=== PATIENT | female | born 1965 | race Caucasian/White ===

== ENCOUNTER 2019-10-27 10:29 | Emergency (ER) | payer OTHER ==
[~2019-10-27] VITALS: Ht 177.8 cm; Wt 100.1 kg
[~2019-10-27 10:29] MED LIST: ALBU2.5V8 INH; CETI10CA PO; ESTR1TAB3 PO; FEXOFENADINE; LEVO50TA5 PO; LISI10TA2 PO; MAGN400C PO
[2019-10-27] MEDS ORDERED: IV NORMAL SALINE 1,000ML 1,000 ML IV ONE (11:00)
[2019-10-27] MEDS ORDERED: ONDANSETRON PF 4 MG/2 ML VIAL. IVP ONE (11:00)
[2019-10-27] MEDS ORDERED: IOHEXOL 300 MG/ML 75 ML VIAL. IV ONE (11:00)
[2019-10-27] MEDS ORDERED: MORPHINE SULFATE 2 MG/ML DISP.SYRIN. IV ONE (11:00)
[2019-10-27 11:24] LABS: BASO % 1 % (0-3); EOS # 0.1 x10^3/uL (0.0-0.7); EOS % 2 % (0-3); HEMATOCRIT 39.2 % (36.0-47.0); HEMOGLOBIN 13.6 g/dL (12.0-15.5); LYMPH # 1.4 x10^3/uL (1.0-4.8); LYMPH % 28 % (24-48); MEAN CORPUSCULAR HEMOGLOBIN 30 pg (25-35); MEAN CORPUSCULAR HGB CONC 35 g/dL (31-37); MEAN CORPUSCULAR VOLUME 87 fL (79-100); MONO # 0.4 x10^3/uL (0.0-1.1); MONO % 7 % (0-9); NEUT # 3.2 x10^3uL (1.8-7.7); NEUT % 62 % (31-73); PLATELET COUNT 201 x10^3/uL (140-400); RED CELL DISTRIBUTION WIDTH 15.3 % (11.5-14.5); WHITE BLOOD COUNT 5.1 x10^3/uL (4.0-11.0)
[2019-10-27 11:38] LABS: CALCIUM 9.1 mg/dL (8.5-10.1); CREATININE 0.9 mg/dL (0.6-1.0); GFR 64.8; POTASSIUM 3.8 mmol/L (3.5-5.1)
[2019-10-27 11:40] LABS: ALBUMIN 3.9 g/dL (3.4-5.0); ALBUMIN/GLOBULIN RATIO 1.1 (1.0-1.7); TOTAL BILIRUBIN 0.7 mg/dL (0.2-1.0); TOTAL PROTEIN 7.4 g/dL (6.4-8.2)
[2019-10-27 12:10] VITALS: BP 123/78
--- NOTE | 2019-10-27 12:43 | RAD ---
INDICATION: Reason: LLQ pain - diabetic - pending labs / Spl. Instructions: / History: COMPARISON: July 2006 TECHNIQUE: Axial CT images obtained through the abdomen and pelvis with contrast. One or more of the following individualized dose reduction techniques were utilized for this examination: 1. Automated exposure control; 2. Adjustment of the mA and/or kV according to patient size; 3. Use of iterative reconstruction technique. FINDINGS: Postoperative changes to the stomach. Scattered calcific atherosclerosis. Abdominal aorta is not aneurysmal. No intrahepatic bile duct dilation. The liver is low density which can be seen with fatty infiltration. Postcholecystectomy changes. There is some fat-containing anterior abdominal wall hernias. There is some edema to the mesenteric fat with some scattered lymph nodes within. No peripancreatic fluid collection. No perisplenic hemorrhage. No hydronephrosis. Urinary bladder is decompressed. No hydronephrosis. Appendix is not well seen. No dilated loops of bowel to suggest obstruction. Degenerative changes the spine with multilevel central canal and neural foraminal stenosis. Degenerative changes of the hips. IMPRESSION: * No evidence of bowel obstruction. * There is some edema seen within the mesentery with scattered prominent lymph nodes. Nonspecific in nature with some possible causes including mesenteric panniculitis. Electronically signed by: Shaun Rodriguez MD (10/27/2019 12:40 PM) [id number]
[2019-10-27 12:57] LABS: BACTERIA,URINE MANY /HPF (0-FEW); BILIRUBIN,URINE NEG (NEG); CLARITY,URINE CLOUDY; COLOR,URINE YELLOW; GLUCOSE,URINE NEG (NEG); NITRITE,URINE POS (NEG); RBC,URINE RARE /HPF (0-2); SQUAMOUS EPITHELIAL CELL,UR MOD /LPF
--- NOTE | 2019-10-27 12:59 | PHYS DOC ---
Past History Past Medical History: Hypertension Past Surgical History: Appendectomy, Cholecystectomy, , Gastric Bypass, Hysterectomy Alcohol Use: Occasionally Drug Use: None General Adult EDM: Chief Complaint: ABDOMINAL PAIN HPI: HPI: 54-year-old female presents with left lower quadrant abdominal pain. The patient states the pain started yesterday. She was not doing anything when it started. It was initially a pinching sensation and now feels like a twisting pressure sensation. Patient has had multiple abdominal surgeries in the past. No known complications. She has had gastric sleeve. The pain is 7 out of 10. She denies vomiting or diarrhea. No fever or chills at home. She denies trauma or falls. Review of Systems: Review of Systems: Constitutional: Denies fever or chills Eyes: Denies change in visual acuity HENT: Denies nasal congestion or sore throat Respiratory: Denies cough or shortness of breath Cardiovascular: Denies chest pain or edema GI: Left lower quadrant abdominal pain. Denies nausea, vomiting, bloody stools or diarrhea : Denies dysuria Musculoskeletal: Denies back pain or joint pain Integument: Denies rash Neurologic: Denies headache, focal weakness or sensory changes Endocrine: Denies polyuria or polydipsia Lymphatic: Denies swollen glands Psychiatric: Denies depression or anxiety Heart Score: Risk Factors: Risk Factors: DM, Current or recent (<one month) smoker, HTN, HLP, family history of CAD, obesity. Risk Scores: Score 0 - 3: 2.5% MACE over next 6 weeks - Discharge Home Score 4 - 6: 20.3% MACE over next 6 weeks - Admit for Clinical Observation Score 7 - 10: 72.7% MACE over next 6 weeks - Early Invasive Strategies Current Medications: Current Meds: Current Medications Medications (Trade) Dose Ordered Sig/David Start Time Stop Time Status Last Admin Dose Admin Iohexol (Omnipaque 300 Mg/ml) 75 ml 1X ONCE 10/27/19 11:00 10/27/19 11:01 DC 10/27/19 11:56 75 ML Morphine Sulfate (Morphine 2mg Syringe) 2 mg 1X ONCE 10/27/19 11:00 10/27/19 11:02 DC 10/27/19 11:07 2 MG Ondansetron HCl (Zofran) 4 mg 1X ONCE 10/27/19 11:00 10/27/19 11:02 DC 10/27/19 11:07 4 MG Sodium Chloride 1,000 ml @ 1,000 mls/hr 1X ONCE 10/27/19 11:00 10/27/19 11:59 DC 10/27/19 11:05 1,000 MLS/HR Allergies: Allergies: Allergies Coded Allergies Type Severity Reaction Last Updated Verified Penicillins Allergy Intermediate 10/27/19 Yes simvastatin Allergy Intermediate 10/27/19 Yes vancomycin Allergy Intermediate 10/27/19 Yes Physical Exam: PE: Constitutional: Well developed, well nourished, obese, no acute distress, non- toxic appearance. [] HENT: Normocephalic, atraumatic, bilateral external ears normal, oropharynx moist, no oral exudates, nose normal. [] Eyes: PERRLA, EOMI, conjunctiva normal, no discharge. [] Neck: Normal range of motion, no tenderness, supple, no stridor. [] Cardiovascular: Heart rate regular rhythm, no murmur [] Lungs & Thorax: Bilateral breath sounds clear to auscultation [] Abdomen: Bowel sounds normal, soft, left lower quadrant tenderness, no masses, no pulsatile masses. [] Skin: Warm, dry, no erythema, no rash. [] Back: No tenderness, no CVA tenderness. [] Extremities: No tenderness, no cyanosis, no clubbing, ROM intact, no edema. [] Neurologic: Alert and oriented X 3, normal motor function, normal sensory function, no focal deficits noted. [] Psychologic: Affect normal, judgement normal, mood normal. [] Current Patient Data: Labs: Laboratory Tests Test 10/27/19 11:02 White Blood Count 5.1 x10^3/uL (4.0-11.0) Red Blood Count 4.50 x10^6/uL (3.50-5.40) Hemoglobin 13.6 g/dL (12.0-15.5) Hematocrit 39.2 % (36.0-47.0) Mean Corpuscular Volume 87 fL (79-100) Mean Corpuscular Hemoglobin 30 pg (25-35) Mean Corpuscular Hemoglobin Concent 35 g/dL (31-37) Red Cell Distribution Width 15.3 % (11.5-14.5) H Platelet Count 201 x10^3/uL (140-400) Neutrophils (%) (Auto) 62 % (31-73) Lymphocytes (%) (Auto) 28 % (24-48) Monocytes (%) (Auto) 7 % (0-9) Eosinophils (%) (Auto) 2 % (0-3) Basophils (%) (Auto) 1 % (0-3) Neutrophils # (Auto) 3.2 x10^3uL (1.8-7.7) Lymphocytes # (Auto) 1.4 x10^3/uL (1.0-4.8) Monocytes # (Auto) 0.4 x10^3/uL (0.0-1.1) Eosinophils # (Auto) 0.1 x10^3/uL (0.0-0.7) Basophils # (Auto) 0.0 x10^3/uL (0.0-0.2) Sodium Level 140 mmol/L (136-145) Potassium Level 3.8 mmol/L (3.5-5.1) Chloride Level 105 mmol/L (98-107) Carbon Dioxide Level 26 mmol/L (21-32) Anion Gap 9 (6-14) Blood Urea Nitrogen 11 mg/dL (7-20) Creatinine 0.9 mg/dL (0.6-1.0) Estimated GFR (Cockcroft-Gault) 64.8 BUN/Creatinine Ratio 12 (6-20) Glucose Level 167 mg/dL (70-99) H Calcium Level 9.1 mg/dL (8.5-10.1) Total Bilirubin 0.7 mg/dL (0.2-1.0) Aspartate Amino Transferase (AST) 28 U/L (15-37) Alanine Aminotransferase (ALT) 55 U/L (14-59) Alkaline Phosphatase 86 U/L (46-116) Total Protein 7.4 g/dL (6.4-8.2) Albumin 3.9 g/dL (3.4-5.0) Albumin/Globulin Ratio 1.1 (1.0-1.7) Vital Signs: Vital Signs Date Time Temp Pulse Resp B/P (MAP) Pulse Ox O2 Delivery O2 Flow Rate FiO2 10/27/19 11:07 97 Room Air 10/27/19 10:49 99.0 121 18 142/105 (117) EKG: EKG: [] Radiology/Procedures: Radiology/Procedures: [] Impressions: INDICATION: Reason: LLQ pain - diabetic - pending labs / Spl. Instructions: / History: COMPARISON: July 2006 TECHNIQUE: Axial CT images obtained through the abdomen and pelvis with contrast. One or more of the following individualized dose reduction techniques were utilized for this examination: 1. Automated exposure control; 2. Adjustment of the mA and/or kV according to patient size; 3. Use of iterative reconstruction technique. FINDINGS: Postoperative changes to the stomach. Scattered calcific atherosclerosis. Abdominal aorta is not aneurysmal. No intrahepatic bile duct dilation. The liver is low density which can be seen with fatty infiltration. Postcholecystectomy changes. There is some fat-containing anterior abdominal wall hernias. There is some edema to the mesenteric fat with some scattered lymph nodes within. No peripancreatic fluid collection. No perisplenic hemorrhage. No hydronephrosis. Urinary bladder is decompressed. No hydronephrosis. Appendix is not well seen. No dilated loops of bowel to suggest obstruction. Degenerative changes the spine with multilevel central canal and neural foraminal stenosis. Degenerative changes of the hips. IMPRESSION: * No evidence of bowel obstruction. * There is some edema seen within the mesentery with scattered prominent lymph nodes. Nonspecific in nature with some possible causes including mesenteric panniculitis. Electronically signed by: Jolene Rodriguez MD (10/27/2019 12:40 PM) [id number] DICTATED AND SIGNED BY: JOLENE RODRIGUEZ MD DATE: 10/27/19 1240 CC: TAY HAMILTON DO; CRUZ MORALES ~ Course & Med Decision Making: Course & Med Decision Making Pertinent Labs and Imaging studies reviewed. (See chart for details) I have given the patient a liter of normal saline, 4 mg of Zofran, 2 mg of morphine. This has controlled her pain. CT scan shows some edema in the mesentery, but no specific sign of infection or obstruction. See official read for more details. This appears to be enteric adenitis. This should be self- limiting. She will follow-up with her primary care physician as needed. She is stable for discharge at this time. [] Dragon Disclaimer: Dragon Disclaimer: This electronic medical record was generated, in whole or in part, using a voice recognition dictation system. Departure Departure: Impression: Primary Impression: Mesenteric adenitis Disposition: HOME/RESIDENCE PRIOR TO ADM Condition: STABLE Referrals: CRUZ MORALES (PCP) Patient Instructions: Mesenteric Adenitis Justification of Admission: Justification of Admission: Justification of Admission Dx: N/A TAY HAMILTON DO Oct 27, 2019 12:59
[2019-10-27] MEDS ORDERED: NITR100C62 PO (13:03)
[2019-10-27] MEDS ORDERED: HYDR-3165 PO (13:12)
== END 2019-10-27 13:18 | disposition home or self-care (01) ==
LOC: ER 10:29
DX: I88.0 Nonspecific mesenteric lymphadenitis (principal); I10 Essential (primary) hypertension; Z90.49 Acquired absence of other specified parts of digestive tract; Z90.89 Acquired absence of other organs; Z98.890 Other specified postprocedural states; Z90.710 Acquired absence of both cervix and uterus; Z98.84 Bariatric surgery status; Z88.0 Allergy status to penicillin; Z88.1 Allergy status to other antibiotic agents; Z88.8 Allergy status to other drugs, medicaments and biological substances
CPT/HCPCS: 36415; 74177; 80053; 81001; 85025; 87077; 87086; 87186; 96361; 96374; 96375; 99285; J2270; J2405; J7030; Q9967

== ENCOUNTER 2020-05-10 15:14 | Emergency (ER) | payer OTHER ==
[~2020-05-10] VITALS: Ht 177.8 cm; Wt 100.1 kg
[~2020-05-10 15:14] MED LIST changes: +HYDR-3165 PO; +LISI10TA16 PO; -LISI10TA2 PO; +NITR100C62 PO
[2020-05-10 15:24] VITALS: BP 157/86
--- NOTE | 2020-05-10 15:36 | PHYS DOC ---
Past History Past Medical History: Hypertension Past Surgical History: Appendectomy, Cholecystectomy, , Gastric Bypass, Hysterectomy Alcohol Use: Occasionally Drug Use: None Adult General Chief Complaint Chief Complaint: ANKLE PROBLEM HPI HPI Patient is a 55-year-old female presents to the emergency department complaining of right ankle pain since approximately 1415 today when she stood up from a chair and rolled her right ankle. Patient denies falling to the ground stating that she caught her self. Patient states that approximately an hour later she took a 200 mg Motrin for pain, states her current pain is a 3-4/10 on a 1-10 pain scale. Patient denies any numbness or tingling to her right ankle or foot, states she can feel something pop in her right ankle when she walks, denies any bruising or swelling. Patient denies any other physical complaints or physical injuries. Review of Systems Review of Systems 14 body systems of review of systems have been reviewed. See HPI for pertinent positives and negative responses, otherwise all other systems are negative, nonpertinent or noncontributory. Allergies Allergies Allergies Coded Allergies Type Severity Reaction Last Updated Verified Penicillins Allergy Intermediate 10/27/19 Yes simvastatin Allergy Intermediate 10/27/19 Yes vancomycin Allergy Intermediate 10/27/19 Yes Physical Exam Physical Exam Constitutional: Well developed, well nourished, no acute distress, non-toxic appearance. 55-year-old female no apparent distress HENT: Normocephalic, atraumatic, bilateral external ears normal, oropharynx moist, no oral exudates, nose normal. Oropharynx pink, moist, no uvular swelling, no tonsillar edema or erythema, no deep tissue infection process appreciated, no lymphadenopathy of the head or neck appreciated, bilateral TMs within normal limits. Eyes: PERRLA, EOMI, conjunctiva normal, no discharge. Neck: Normal range of motion, no tenderness, supple, no stridor. No nuchal rigidity, no meningismus signs, no midline spinal tenderness. Cardiovascular:Heart rate regular rhythm, heart sounds S1-S2 consultation. Lungs & Thorax: Bilateral breath sounds clear to auscultation all lung trimble, no adventitious lung sounds appreciated. Abdomen: Bowel sounds normal, soft, no tenderness, no masses, no pulsatile masses. Skin: Warm, dry, no erythema, no rash. Back: No tenderness, no CVA tenderness. No midline spinal tenderness. Extremities: No tenderness, no cyanosis, no clubbing, ROM intact, no edema. Except for right ankle, pain to lateral malleoli are process, 2+ dorsalis pedis and posterior tibial pulse, skin intact, no crepitus appreciated, pain with passive range of motion, no loss of sensation. Distal cap refill less than 2 seconds. Neurologic: Alert and oriented X 3, normal motor function, normal sensory function, no focal deficits noted. Psychologic: Affect normal, judgement normal, mood normal. Current Patient Data Vital Signs Vital Signs Date Time Temp Pulse Resp B/P (MAP) Pulse Ox O2 Delivery O2 Flow Rate FiO2 05/10/20 15:24 97.9 83 16 157/86 (109) 98 Room Air EKG EKG [] Radiology/Procedures Radiology/Procedures [] Heart Score C/O Chest Pain: No Risk Factors: Risk Factors: DM, Current or recent (<one month) smoker, HTN, HLP, family history of CAD, obesity. Risk Scores: Risk Factors: DM, Current or recent (<one month) smoker, HTN, HLP, family history of CAD, obesity. Course & Med Decision Making Course & Med Decision Making Pertinent Labs and Imaging studies reviewed. (See chart for details) 55-year-old female, vital signs reviewed, presents emergency department concerning right ankle pain after rolling it today at approximately 1415. Meghann ent self treated with 200 mg ibuprofen for pain, states she does not any need anything for pain in the ED today. Physical examination was consistent with sprained ankle, however related to patient's physical presentation and complaint and x-ray was ordered. Ice pack applied by ED nursing staff X-ray negative for acute bony abnormality or fracture read by house radiologist interpretation, discussed with patient x-ray findings, RICE therapy, aches and ankle stirrup application and home use, patient gave verbal understanding of discharge home instructions, follow-up with PCP soon, return to ER precautions or concerns, was discharged home without incident. Dragon Disclaimer Dragon Disclaimer This electronic medical record was generated, in whole or in part, using a voice recognition dictation system. Departure Departure: Impression: Primary Impression: Right ankle sprain Disposition: 01 DC HOME SELF CARE/HOMELESS Condition: GOOD Referrals: CRUZ MORALES (PCP) Patient Instructions: Ankle Sprain, Elastic Bandage and RICE, Splint Care, [id number] Additional Instructions: Please use RICE therapy as we discussed, ankle stirrup for comfort as needed, follow-up with your primary care physician for ongoing pain for consideration of possible MRI, return to the emergency department for worsening symptoms or other concerns. EMERGENCY DEPARTMENT GENERAL DISCHARGE INSTRUCTIONS Thank you for coming to [facility] (ED) today and trusting us with you care. We trust that you had a positivie experience in our Emergency Department. If you wish to speak to the department management, you may call the director at [phone]. YOUR FOLLOW UP INSTRUCTIONS ARE FOLLOWS: 1. Do you have a private Doctor? If you do not have a private doctor, please ask for a resource list of physicians or clinics that may be able to assist you with follow up care. 2. The Emergency Physician has interpreted your x-rays. The X-Ray specialist will also review them. If there is a change in the findings, you will be notified in 48 hours when at all possible. 3. A lab test or culture has been done, your results will be reviewed and you will be notified if you need a change in treatment. ADDITIONAL INSTRUCTIONS AND INFORMATION: 1. Your care today has been supervised by a physician who is specially trained in emergency care. Many problems require more than one evaluation for a complete diagnosis and treatment. We recommend that you schedule your follow up appointment as recommended to ensure complete treatment of you illness or injury. If you are unable to obtain follow up care and continue to have a problem, or if your condition worsens, we recommend that you return to the ED. 2. We are not able to safely determine your condition over the phone nor are we able to give sound medical advice over the phone. For these safety reasons, if you call for medical advice we will ask you to come to the ED for further evaluation. 3. If you have any questions regarding these discharge instructions please call the ED at [phone]. SAFETY INFORMATION: In the interest of safety, wellness, and injury prevention; we encourage you to wear your sealbelt, if you smoke; quite smoking, and we encourage family to use a protective helmet for bicycling and other sporting events that present an increased risk for head injury. IF YOUR SYMPTOMS WORSEN OR NEW SYMPTOMS DEVELOP, OR YOU HAVE CONCERNS ABOUT YOUR CONDITION; OR IF YOUR CONDITION WORSENS WHILE YOU ARE WAITING FOR YOUR FOLLOW UP APPOINTMENT; EITHER CONTACT YOUR PRIMARY CARE DOCTOR, THE PHYSICIAN WHOSE NAME AND NUMBER YOU WERE GIVEN, OR RETURN TO THE ED IMMEDIATELY. Problem Qualifiers Primary Impression: Right ankle sprain Encounter type: initial encounter Involved ligament of ankle: unspecified ligament Qualified Codes: S93.401A - Sprain of unspecified ligament of right ankle, initial encounter COLLEEN KENNEDY APRN May 10, 2020 15:36
--- NOTE | 2020-05-10 15:52 | RAD ---
EXAM: Right ankle, 3 views. HISTORY: Rolled ankle. COMPARISON: None. FINDINGS: 3 views of the right ankle are obtained. There is no acute fracture, dislocation or subluxa tion. The ankle mortise is intact. There is no osteochondral lesion. There is a small plantar spur. IMPRESSION: No acute osseous finding. Electronically signed by: Katlin Del Castillo MD (05/10/2020 3:49 PM) [id number]
== END 2020-05-10 16:31 | disposition home or self-care (01) ==
LOC: ER 15:14
DX: S93.401A Sprain of unspecified ligament of right ankle, initial encounter (principal); I10 Essential (primary) hypertension; Z98.84 Bariatric surgery status; Z88.0 Allergy status to penicillin; Z88.1 Allergy status to other antibiotic agents; Z88.8 Allergy status to other drugs, medicaments and biological substances; X50.9XXA Other and unspecified overexertion or strenuous movements or postures, initial encounter; Y93.89 Activity, other specified; Y92.89 Other specified places as the place of occurrence of the external cause; Y99.8 Other external cause status
CPT/HCPCS: 73610; 99283